=== PATIENT | female | born 1965 | race Caucasian/White ===

== ENCOUNTER 2021-02-01 10:25 | Emergency (ER) | payer OTHER, SELFPAY ==
[2021-02-01 10:36] VITALS: BP 118/79; PULSE 99; RESP 18; TEMP 35.5; O2SAT 96
--- NOTE | 2021-02-01 10:45 | ED.EAR ---
HPI - Ear Problem General Chief complaint: Ear Stated complaint: right ear History of Present Illness HPI Narrative: This is a 55-year-old comes in complaining of ringing in the ears states she is having for the past 3 to 4 years. Patient states that she does have meclizine as well as she was put on antibiotics last month patient also states that she has some eardrops which is ofloxacin. When asked what made it worse she said nothing is just that she wanted to see if I was able to do something different for her. Related Data Home Medications Medication Instructions Recorded Confirmed cyclobenzaprine mg 02/01/21 levothyroxine 02/01/21 naproxen 02/01/21 pravastatin 02/01/21 Allergies Allergy/AdvReac Type Severity Reaction Status Date / Time Sulfa (Sulfonamide Allergy Severe NAUSEA, Verified 12/23/08 07:44 Antibiotics) SWELLING Review of Systems Review of Systems: Ringing in bilateral ears with some nausea with quick movement All systems reviewed & are unremarkable except as noted in HPI and below PMFSH Comments At time as signature, I have reviewed and agree with nursing past medical, social, surgical and family history. Please see nursing chart for further information. There is no relevant family history pertinent to the presenting complaint. Exam Narrative: GENERAL:Well-appearing, well-nourished, and in no acute distress. HEAD:Normocephalic, atraumatic. EYES: PERRLA ENT: Nares clear, no rhinorrhea or epistaxis. Mucous membranes moist. Auditory canal and ears are normal bilaterally CHEST: No respiratory distress. HEART: Regular rate and rhythm. EXTREMITIES: Normal range of motion. No edema. SKIN: Warm, dry, no rash. NEURO: No focal deficits. Alert and oriented x3. Course Vital Signs Vital signs: Vital Signs Temperature 96 F L 02/01/21 10:36 Pulse Rate 99 02/01/21 10:36 Respiratory Rate 18 02/01/21 10:36 Blood Pressure 118/79 02/01/21 10:36 Pulse Oximetry 96 02/01/21 10:36 Temperature 96 F L 02/01/21 10:36 Pulse Rate 99 02/01/21 10:36 Respiratory Rate 18 02/01/21 10:36 Blood Pressure 118/79 02/01/21 10:36 Pulse Oximetry 96 02/01/21 10:36 Medical Decision Making MDM Narrative Medical decision making narrative: Explained to patient there is nothing else that I was able to do for her she needed to see the ENT this is a chronic problem nothing acutely is going on at this time. Vital Signs Vital Signs: Vital Signs Temperature 96 F L 02/01/21 10:36 Pulse Rate 99 02/01/21 10:36 Respiratory Rate 18 02/01/21 10:36 Blood Pressure 118/79 02/01/21 10:36 Pulse Oximetry 96 02/01/21 10:36 Temperature 96 F L 02/01/21 10:36 Pulse Rate 99 02/01/21 10:36 Respiratory Rate 18 02/01/21 10:36 Blood Pressure 118/79 02/01/21 10:36 Pulse Oximetry 96 02/01/21 10:36 Discharge Plan Discharge Clinical Impression: Tinnitus Qualifiers: Laterality: bilateral Qualified Code(s): H93.13 - Tinnitus, bilateral Patient Disposition: Home, Self-Care Condition: Stable Instructions: Antibiotic Form, Tinnitus (ED) Additional Instructions: Distracting sounds such as a fan, low-volume radio static, or soft music may make tinnitus more tolerable. Relaxation, biofeedback, and exercise may also help. Suddenly hear ringing, especially if only in one ear Also experience sudden dizziness or hearing loss Make an appointment to see a doctor if you Develop ringing after a cold that lasts longer than a week Have symptoms that are bothersome Notice possible hearing loss Call and schedule with ENT Prescriptions: No Action cyclobenzaprine 10 mg tablet RF: 0 levothyroxine 137 mcg tablet RF: 0 pravastatin 20 mg tablet RF: 0 naproxen 500 mg tablet RF: 0 Follow-up/Referrals: Harjeet Javed MD [Physician] - (Call office and ask to get a appointment for your Tinnitus ) Rivka,MD Ruma [Primary Care Prov
== END 2021-02-01 11:02 | disposition home or self-care (01) ==
PROVIDERS: Emergency Provider Nurse Practitioner Family; PCP Internal Medicine
DX: H93.13 Tinnitus, bilateral (principal); E03.9 Hypothyroidism, unspecified
CPT/HCPCS: 99211; G0463